=== PATIENT | female | born 1980 | race Caucasian/White ===

== ENCOUNTER 2017-05-18 16:34 | Emergency (ER) | payer OTHER ==
[~2017-05-18] VITALS: Ht 160 cm; Wt 58.2 kg
[2017-05-18 16:44] VITALS: BP 121/76; PULSE 102; RESP 22; O2SAT 99
--- NOTE | 2017-05-18 17:20 | ED.REPORT ---
HPI- Female Date of Service May 18, 2017 ED Provider: Dr. Hayder Funez MD A 36 year old, 11 week female with a history of retroverted uterus presents to the ED with urinary retention that began this afternoon. Associated symptoms include dizziness and shaking chills. The patient reports similar symptoms previously that were relieved by catheter placement. She recently had a catheter placed due to urinary retention on Sunday. She denies any vaginal bleeding, chills, nausea or vomiting. Nursing Notes Stated Complaint: PAIN TO URINATE Chief Complaint: Female Abdominal Pain Nursing Notes Reviewed: Yes Allergies: Coded Allergies: No Known Allergies (Unverified , 05/18/17) General Time Seen by MD: 17:19 Chief Complaint Unable to urinate Hx Obtained From: Patient Arrived By: Walk-in Sudden in Onset?: No Onset Occurred: 1 - 4 hours ago Symptom Duration: Since onset Location: : Suprapubic Quality: Fullness, Painful Radiation: Does not radiate Severity: Current: Moderate Severity: Maximum: Moderate Associated with: Reports: Chills, UTI symptoms... (Retention) Pertinent Negative: Pt denies other symptoms Status: Positive - ED serum HCG Recent Healthcare: No recent hospitalization, Recent doctor visit Past Medical History Past Medical History Notes: OB: Dr. Carmen Menjivar Past Medical History Retroverted uterus Currently 11 weeks Past Surgical History None reported. Smoking History Unknown if Ever Smoker Social History Other Social History: Good social support, , From out of town Ambulatory Status Independent Review of Systems Constitutional: Reports: Chills, Denies: Fever GI: Denies: Nausea, Vomiting Female: Reports: (11 weeks), Urination decreased Neurologic: Reports: Dizziness Complete sys rev & neg: except as marked. Physical Exam Initial Vital Signs Vital Signs (First) Date Time Temp Pulse Resp B/P Pulse Ox O2 Delivery O2 Flow Rate FiO2 05/18/17 16:44 36.3 102 22 121/76 99 Room Air Initial VS: Reviewed Head / Eyes: Atraumatic, Normocephalic, PERRL Neck: Supple, Non-tender, Full range of motion Extremities: Vascular intact, Neuro intact, No swelling, No tenderness Skin: Warm, Dry, No cyanosis Neurologic: Alert, Oriented, Nonfocal Psychiatric: Mood/affect normal, Behavior normal, Normal thought content Female Genitourinary: Exam deferred General/Constitutional: Awake, Alert Distress / Hydration: Positive: Distress moderate Appearance / Presentation: Positive: Uncomfortable GENERAL: Pacing secondary to discomfort Respiratory / Chest: Atraumatic, Breath sounds NL, Breath sounds = bilat, No respiratory distress Cardiovascular: Heart rate NL, Regular rhythm, Heart sounds NL Abdomen: Atraumatic, Soft Bowel Sounds / Distention: Positive: Distention mild Interpretation & Diagnostics Lab Results Interpretation Test 05/18/17 17:55 Urine Color Yellow (YELLOW) Urine Appearance Clear (CLEAR,HAZY) Urine pH 6.0 (5.0-8.0) Urine Specific [place] 1.010 (1.003-1.035) Urine Protein Negativemg/dL (NEG,TRACE) Urine Glucose (UA) Negativemg/dL (NEGATIVE) Urine Ketones Negativemg/dL (NEGATIVE) Urine Occult Blood Negative (NEGATIVE) Urine Nitrite Negative (NEGATIVE) Urine Bilirubin Negative (NEGATIVE) Urine Urobilinogen Normalmg/dL (NORMAL) Urine Leukocyte Esterase Negative (NEGATIVE) Urine RBC 0-2/hpf (0-2) Urine WBC 0-5/hpf (0-5) Urine Epithelial Cells Occasional/hpf (NONE-MOD) Urine Crystals None seen (NONE SEEN) Urine Bacteria Few/hpf (NONE-FEW) Urine Hyaline Casts None/lpf (NONE) Urine Granular Casts None seen (NONE SEEN) Urine Waxy Casts None seen (NONE SEEN) Urine Red Blood Cell Casts None seen (NONE SEEN) Urine White Blood Cell Casts None seen (NONE SEEN) Urine Mucus None seen (None Seen) Urine Trichomonas None seen (NONE SEEN) Urine Yeast None (NONE SEEN) Urinalysis Comment None Urine Culture Reflexed Not indicated US Focused OB Amniotic fluid normal No evidence of contractions or active labor. Exam Performed by: ED physician Findings: heart rate (150) Re-Eval/Medical Decision Re-Evaluation/Progress : Time of Eval: 18:39 Patient Status: Condition improved Re-Evaluation/Progress Note: Bedside US performed. She is informed of the results. All of the patient's questions about her likely diagnosis and disposition are addressed. Patient is given strict return precautions. She understands and agree with the plan. Consultation #1: Referral / Consult Name: Marcello Salazar MD Call Returned at: 18:49 Loading Checker: Agrees with eval, Agrees with plan Note: OB - Patient condition is discussed. Agrees with plan to keep catheter in until Sunday. Recommends urology follow up. Consultation #2: Call Returned at: 21:47 Loading Checker: Will see patient, Will see in office, Agrees with eval, Agrees with plan Note: Dr. Carmen Menjivar - will see pt in office Counseled Regarding: Diagnosis, Lab results, Need for follow-up, When/why to return to ED Discharge & Departure Impression: Primary Impression: Urinary retention Additional Impression: Weeks of gestation: 11 weeks Qualified Code: Z3A.11 - 11 weeks gestation of Disposition: Home Discharge Condition All VS Reviewed: Yes Condition: Stable Patient Instructions: Acute Urinary Retention in Women (ED), (ED) Additional Instructions: Thank you for trusting us with your care this evening. Your emergency department evaluation today including examination, lab work,and ultrasound are reassuring that there is no emergent cause for concern at this time. Please keep the Payan catheter in until Sunday until you are able to follow up with urology. Schedule a follow-up appointment with Dr. Menjivar in the next week for a recheck. Take 1-2 Tylenol or ibuprofen every 6-8 hours as needed for pain. Take Keflex 3 times daily until follow up and catheter removal. Please return to the emergency department for any new or worsening conditions including any fevers, chills, nausea, vomiting, urinary retention, vaginal bleeding, abdominal pain, chest pain, shortness of breath, lightheadedness, weakness or any other concerning symptoms. Referrals: Dashawn Cordova MD Scribe Attestation Portions of this note were transcribed by Casimiro Gonzalez. I, Dr. Funez personally performed the history, physical exam and medical decision-making; I reviewed and confirmed the accuracy of the information in the transcribed note. Hayder Funez DO May 18, 2017 17:20 CASIMIRO GONZALEZ May 18, 2017 17:28
[2017-05-18 18:21] LABS: APPEARANCE,URINE CLEAR (CLEAR,HAZY); COLOR,URINE YELLOW (YELLOW); OCCULT BLOOD,URINE NEGATIVE (NEGATIVE); UROBILINOGEN,URINE NORMAL (NORMAL)
[2017-05-18 19:55] VITALS: BP 89/58; PULSE 63; RESP 22; O2SAT 100
== END 2017-05-18 19:28 | disposition home or self-care (01) ==
LOC: SED 16:34
DX: O99.89 Other specified diseases and conditions complicating pregnancy, childbirth and the puerperium (principal); R33.9 Retention of urine, unspecified; Z3A.11 11 weeks gestation of pregnancy